=== PATIENT | female | born 1955 | race Two or more races ===

== ENCOUNTER → 2017-11-14 | Outpatient (CLI) | payer MEDICAID | LOC: FIMAGING 10:51 | PROVIDERS: ATTEND Internal Medicine | DX: R05 Cough (principal); I70.0 Atherosclerosis of aorta; I10 Essential (primary) hypertension; E66.9 Obesity, unspecified ==

== ENCOUNTER 2018-12-30 13:38 | Emergency (ER) | payer OTHER, MEDICAID ==
--- NOTE | 2018-12-30 14:09 | EDPHY ---
H & P Stated Complaint: R upper abd/chest pain with dry cough x 2 days Time Seen by Provider: 12/30/18 14:09 HPI/ROS: CHIEF COMPLAINT: "I have a cough and pain on the right side" of her chest HISTORY OF PRESENT ILLNESS: The patient is a 63 y/o female with a history of hypertension arriving with her daughter complaining of a lingering cough for the last few days following a cold, which is now associated with intermittent right-sided rib pain underneath her right chest. She developed cold symptoms including rhinorrhea on December 20, 10 days ago, and the majority of her symptoms resolved with the exception of her cough. Her cough has become constant , "dry and hacking" over the last 2 days and is causing difficulty sleeping at night. She developed associated "burning" pain underneath her right breast that is only present when coughing. She's anxious that she could have an infection causing her pain, but also thinks it may be related to some weight training at the gym. She denies associated shortness of breath at any point and notes she went on a walk this morning without issue. No fever, myalgias, shortness of breath with exertion, leg swelling, calf pain, rash. No history of cardiac disease. No shingles vaccination. REVIEW OF SYSTEMS: A ten system review of systems was performed and is negative with the exception of the items mentioned in the HPI. Past medical history: Hypertension - Losartan Past surgical history: Denies Family history: Cardiac history Social history: Daughter at bedside lives with patient. Nonsmoker. No alcohol use. PCP: Dr. Jaswinder Pressley General Appearance: Alert. Vital signs reviewed. Blood pressure 182/106 at triage. Eyes: Pupils equal and round, no conjunctival injection, no discharge. Anicteric. ENT, Mouth: Mucous membranes are moist, no oropharyngeal erythema or edema. Neck: No lymphadenopathy, supple. Respiratory: Lungs are clear to auscultation; no wheezes, rales, or rhonchi. Cardiovascular: Regular rate and rhythm; no murmur, rub, or gallop. Chest: Single point of mild tenderness along mid-axillary line of her right ribcage. Gastrointestinal: Abdomen is soft and nontender, no masses or organomegaly. Skin: Warm and dry, no rashes on exposed skin, normal color. Back: Nontender to palpation over the thoracolumbar spine. No CVAT. Extremities: No lower extremity edema, no calf tenderness or swelling. Neurological: Alert and oriented. Moving all four extremities easily and equally. Psychiatric: Normal affect. - Medical/Surgical History Hx Asthma: No Hx Chronic Respiratory Disease: No Hx Diabetes: No Hx Cardiac Disease: No Hx Renal Disease: No Hx Cirrhosis: No Hx Alcoholism: No Hx HIV/AIDS: No Hx Splenectomy or Spleen Trauma: No Other PMH: htn - Social History Smoking Status: Never smoked Constitutional: Initial Vital Signs Temperature (C) 36.7 C 12/30/18 13:42 Respiratory Rate 18 12/30/18 13:42 Blood Pressure 182/106 H 12/30/18 13:42 O2 Sat (%) 97 12/30/18 13:42 O2 Delivery Mode Room Air Allergies/Adverse Reactions: No Known Allergies Allergy (Unverified 12/30/18 13:41) Home Medications: Medication Instructions Recorded Benzonatate [Tessalon Pearles (RX)] 100 mg PO TID #15 cap 12/30/18 Losartan Potassium 12/30/18 Medical Decision Making - Diagnostics Imaging: I viewed and interpreted images myself ED Course/Re-evaluation: This is a 63 y/o female with a history of hypertension who presents with a few- day history of a dry cough following a recent cold and associated right rib pain while coughing. Her exam is largely unremarkable. She has one localized area of pain along her rib at the right axillary line that is difficult to reproduce. Suspect pain related to cough or potentially her workouts. Plan for EKG and chest x-ray. The 12-lead was interpreted by myself. Normal sinus rhythm. See hard copy and/ or "tracemaster" electronic copy for interpretation. Chest x-ray: no infiltrate. I reviewed the x-ray. No evidence of rib fracture. Reassessed patient and discussed findings. Recommended treatment with Tessalon Perls and follow up with PCP as needed. Return precautions discussed. They are comfortable with this plan. Pain is patient is noted to be hypertensive during her stay in the emergency department. She takes losartan for her blood pressure and is compliant with this medication. She will follow up with Dr. Pressley concerning the elevated blood pressure readings. Differential Diagnosis: I considered a differential diagnosis including but not limited to pulmonary infectious process, COPD, asthma, rib fracture, pulmonary embolus and congestive heart failure. Departure - Departure Disposition: Home, Routine, Self-Care Clinical Impression: Viral URI with cough, Rib pain on right side Condition: Good Instructions: Benzonatate (By mouth), Upper Respiratory Infection (ED) Additional Instructions: 1. Use Tessalon Perls as prescribed for cough. 2. Follow up with your primary care provider as needed for unimproved symptoms over the next few days. 3. Return to the ED for any worsening of condition. Referrals: Jaswinder Pressley MD [Primary Care Provider] - As per Instructions Prescriptions: Benzonatate [Tessalon Pearles (RX)] 100 mg PO TID #15 cap Report Scribed for: Rhiannon Elias Report Scribed by: Trudy Colin Date of Report: 12/30/18 Time of Report: 14:50 Physician Review and Approval Statement: 12/30/18 14:09 Portions of this note were transcribed by the medical billing manager. I, Dr. Rhiannon Elias, personally performed the history, physical exam, and medical decision- making; and confirmed the accuracy of the information in the transcribed note.
[2018-12-30 16:39] VITALS: BP 165/107
--- NOTE | 2018-12-31 23:48 | CPEKG ---
Test Reason : OPEN Blood Pressure : / mmHG Vent. Rate : 106 BPM Atrial Rate : 107 BPM P-R Int : 155 ms QRS Dur : 067 ms QT Int : 334 ms P-R-T Axes : 059 050 045 degrees QTc Int : 444 ms Sinus tachycardia Low voltage, precordial leads Abnormal R-wave progression, early transition Confirmed by Rhiannon Elias ([id number]) on 12/31/2018 11:48:24 PM Referred By: PHYSICIAN ED Confirmed By:Rhiannon Elias
== END 2018-12-30 16:36 | disposition home or self-care (01) ==
DX: J06.9 Acute upper respiratory infection, unspecified (principal); R05 Cough; R07.81 Pleurodynia

== ENCOUNTER → 2019-01-26 | Outpatient (CLI) | payer OTHER, MEDICAID | LOC: FIMAGING 14:46 | PROVIDERS: ATTEND Internal Medicine | DX: R55 Syncope and collapse (principal); I65.23 Occlusion and stenosis of bilateral carotid arteries ==

== ENCOUNTER → 2019-02-16 | Outpatient (CLI) | payer OTHER, MEDICAID | LOC: FCPNEURO 09:47 ==